=== PATIENT | male | born 1940 | race Caucasian/White ===

== ENCOUNTER 2017-11-28 16:07 | Emergency (ER) | payer BC, OTHER ==
[2017-11-28 16:22] VITALS: BP 156/82
--- NOTE | 2017-11-28 16:43 | UC ---
UC General HPI - HPI Summary HPI Summary: patient c/o chronic ear wax build up and is not being able to hear from the right ear. Denies pain, fever, tinnitus. States last time he instilled vinegar and peroxide was 3 days ago. - History of Current Complaint Chief Complaint: UCEar Stated Complaint: EAR COMPLAINT Time Seen by Provider: 11/28/17 16:28 Hx Obtained From: Patient Onset/Duration: Gradual Onset, Lasting Days Onset Severity: Mild Current Severity: Mild Pain Intensity: 0 - Allergy/Home Medications Allergies/Adverse Reactions: Allergies Allergy/AdvReac Type Severity Reaction Status Date / Time No Known Allergies Allergy Verified 11/28/17 16:15 Home Medications: Home Medications Aspirin TAB* [Aspirin 325 MG TAB*] 325 mg PO DAILY PRN 11/28/17 [History Confirmed 11/28/17] PMH/Surg Hx/FS Hx/Imm Hx Previously Healthy: Yes GI/ History: Other - inflammatory bowel disease Other GI/ History: inflammatory bowel disease - Surgical History Surgical History: Yes Surgery Procedure, Year, and Place: 1999 PROST[place], [facility] [place] Fissure and still leaking (kept open), [facility]. 02/2015 EXPLORATORY LAPAROTOMY, SIGMOID COLON RESECTION WITH [place]OSTOMY, [facility] [place] - Social History Alcohol Use: None Substance Use Type: None Smoking Status (MU): Never Smoked Tobacco Type: Cigarettes Amount Used/How Often: 1 PPD Length of Time of Smoking/Using Tobacco: OFF AND ON 8-10 YEARS Have You Smoked in the Last Year: No When Did the Patient Quit Smoking/Using Tobacco: 1972 - Immunization History Most Recent Influenza Vaccination: 2014 Most Recent Tetanus Shot: unknown Most Recent Pneumonia Vaccination: 2015 Review of Systems Constitutional: Negative ENT: Other - hearing loss right Respiratory: Negative All Other Systems Reviewed And Are Negative: Yes Physical Exam Triage Information Reviewed: Yes Appearance: Well-Appearing, Well-Nourished Vital Signs: Initial Vital Signs Temp 97.9 F 11/28/17 16:13 Pulse 58 11/28/17 16:13 Resp 18 11/28/17 16:13 BP 156/82 11/28/17 16:13 Pulse Ox 100 11/28/17 16:13 Vital Signs Reviewed: Yes Eye Exam: Normal ENT: Positive: Pharynx normal, Uvula midline, Other - cerumen impaction of right ear, presence of cerumen on left ear Dental Exam: Normal Neck exam: Normal Respiratory Exam: Normal Cardiovascular Exam: Normal Bowel Sounds: Positive: Present Course/Dx - Course Course Of Treatment: continue debrox or similar at home, irrigation when needed - Differential Dx - Multi-Symptom Provider Diagnoses: cerumen impaction Discharge - Discharge Plan Condition: Stable Disposition: HOME Patient Education Materials: Cerumen Impaction (ED) Referrals: Joelle Reina MD [Primary Care Provider] -
== END 2017-11-28 16:55 | disposition home or self-care (01) ==
LOC: UCEAST 16:07
DX: H61.21 Impacted cerumen, right ear (principal); Z87.891 Personal history of nicotine dependence; Z79.82 Long term (current) use of aspirin; K58.9 Irritable bowel syndrome, unspecified
CPT/HCPCS: 99213; G0463

== ENCOUNTER 2017-12-21 20:15 | Observation (INO) | payer OTHER ==
[2017-12-21] MEDS ORDERED: Morphine INJ* 4 MG/ML 1 ML SYRINGE (NEW SYRINGE VERSION) IV ONE (21:58)
[2017-12-21] MEDS ORDERED: Ondansetron INJ* 2 MG/ML VIAL IV ONE (21:58)
[2017-12-21] MEDS ORDERED: NS 0.9% 1000 ML* 1,000 ML IV ONE ×2 (21:58→22:48)
[2017-12-21 22:04] LABS: ABS Basophils 0 10^3/ul (0-0.2); ABS Eosinophils 0 10^3/ul (0-0.6); ABS Lymphocytes 0.5 10^3/ul (1.0-4.8); ABS Monocytes 0.5 10^3/ul (0-0.8); ABS Neutrophils 11.5 10^3/ul (1.5-7.7); ABS Nucleated RBC 0 10^3/ul; Eosinophil % 0 % (0-6); Hematocrit 47 % (42-52); Mean Corpuscular HGB Conc 34 g/dl (31-36); Mean Corpuscular Hemoglobin 31 pg (27-31); Mean Corpuscular Volume 91 fL (80-94); Mean Platelet Volume 8.5 um3 (7.4-10.4); Nucleated Red Blood Cells % 0; Platelet Count 189 10^3/ul (150-450); Red Blood Count 5.23 10^6/ul (4.0-5.4); Red Cell Distribution Width 14 % (10.5-15); White Blood Count 12.6 10^3/ul (3.5-10.8)
[2017-12-21 22:08] LABS: Urine Appearance Clear; Urine Blood 1+ (Negative); Urine Color Yellow; Urine Ketones 1+ (Negative); Urine Protein 2+(100 mg/dL) (Negative); Urine Specific Gravity 1.021 (1.010-1.030); Urine Urobilinogen Negative (Negative)
--- NOTE | 2017-12-21 22:21 | ED ---
GI/ HPI - HPI Summary HPI Summary: 77-year-old male presents with left lower quadrant pain and left flank pain for the past day. He admits to nausea and vomiting. He admits to diarrhea. He states this feels like when he is previously had diverticulitis that required a colon resection in 2013 with colonostomy and reversal in 2014. He also has history for prostatitis. He denies any pain with urination. He denies any hematuria. Denies any chest pain or shortness of breath. He denies any fevers. He admits to decreased appetite. He denies eating anything different. He did have a kidney stone in 1998. - History of Current Complaint Chief Complaint: EDAbdPain Time Seen by Provider: 12/21/17 21:42 Stated Complaint: FLANK PAIN Pain Intensity: 7 - Additional Pertinent History Primary Care Physician: ALMA DELIA - Allergy/Home Medications Allergies/Adverse Reactions: Allergies Allergy/AdvReac Type Severity Reaction Status Date / Time No Known Allergies Allergy Verified 11/28/17 16:15 PMH/Surg Hx/FS Hx/Imm Hx Endocrine/Hematology History: Reports: Hx Anemia - With removal of prostate Denies: Hx Diabetes Cardiovascular History: Reports: Hx Hypertension - NO MED, Denies: Hx Congestive Heart Failure GI History: Reports: Hx Crohn's Disease - HX OF Possible crohns vs ulcerative colitis, Hx Diverticulosis, Hx Irritable Bowel, Other GI Disorders - diverticulitis, bowel obstruction in May 12, COLOSTOMY 2014 History: Reports: Other Problems/Disorders - Prostatectomy Sensory History: Reports: Hx Cataracts, Hx Contacts or Glasses - GLASSES Denies: Hx Hearing Aid Opthamlomology History: Reports: Hx Cataracts, Hx Contacts or Glasses - GLASSES - Cancer History Cancer Type, 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 Fissure and still leaking (kept open), [facility]. 02/2015 EXPLORATORY LAPAROTOMY, SIGMOID COLON RESECTION WITH COLOSTOMY, [facility] [place] Hx Anesthesia Reactions: No Infectious Disease History: No Infectious Disease History: Denies: History Other Infectious Disease, Traveled Outside the [place] in Last 30 Days - Family History Known Family History: Positive: Hypertension - Social History Alcohol Use: None Substance Use Type: Reports: None Smoking Status (MU): Never Smoked Tobacco Type: Cigarettes Amount Used/How Often: 1 PPD Length of Time of Smoking/Using Tobacco: OFF AND ON 8-10 YEARS Have You Smoked in the Last Year: No Review of Systems Negative: Fever Negative: Chest Pain Negative: Shortness Of Breath Positive: Abdominal Pain, Vomiting, Diarrhea, Nausea Negative: dysuria All Other Systems Reviewed And Are Negative: Yes Physical Exam Triage Information Reviewed: Yes Vital Signs On Initial Exam: Initial Vitals Temp Pulse Resp BP Pulse Ox 98.4 F 93 20 171/118 96 12/21/17 20:21 12/21/17 20:21 12/21/17 20:21 12/21/17 20:21 12/21/17 20:21 Vital Signs Reviewed: Yes Appearance: Positive: Well-Appearing Skin: Positive: Warm, Dry Head/Face: Positive: Normal Head/Face Inspection Eyes: Positive: Normal, Conjunctiva Clear Respiratory/Lung Sounds: Positive: Clear to Auscultation, Breath Sounds Present Cardiovascular: Positive: Normal, RRR Abdomen Description: Positive: Soft, CVA Tenderness (L), Other: - tenderness LLQ Bowel Sounds: Positive: Present Musculoskeletal: Positive: Normal Neurological: Positive: Normal Psychiatric: Positive: Normal Diagnostics - Vital Signs Vital Signs Temp Pulse Resp BP Pulse Ox 12/21/17 22:12 17 12/21/17 20:21 98.4 F 93 20 171/118 96 - Laboratory Lab Results: Lab Results 12/21/17 12/21/17 Range/Units 21:42 21:42 WBC 12.6 H (3.5-10.8) 10^3/ul RBC 5.23 (4.0-5.4) 10^6/ul Hgb 16.0 (14.0-18.0) g/dl Hct 47 (42-52) % MCV 91 (80-94) fL MCH 31 (27-31) pg MCHC 34 (31-36) g/dl RDW 14 (10.5-15) % Plt Count 189 (150-450) 10^3/ul MPV 8.5 (7.4-10.4) um3 Neut % (Auto) 91.6 H (38-83) % Lymph % (Auto) 4.0 L (25-47) % [place] % (Auto) 4.3 (0-7) % Eos % (Auto) 0 (0-6) % Baso % (Auto) 0.1 (0-2) % Absolute Neuts (auto) 11.5 H (1.5-7.7) 10^3/ul Absolute Lymphs (auto) 0.5 L (1.0-4.8) 10^3/ul Absolute Monos (auto) 0.5 (0-0.8) 10^3/ul Absolute Eos (auto) 0 (0-0.6) 10^3/ul Absolute Basos (auto) 0 (0-0.2) 10^3/ul Absolute Nucleated RBC 0 10^3/ul Nucleated RBC % 0 Urine Color Yellow Urine Appearance Clear Urine pH 6.0 (5-9) Ur Specific [place] 1.021 (1.010-1.030) Urine Protein 2+(100 mg/dl) A (Negative) Urine Ketones 1+ A (Negative) Urine Blood 1+ A (Negative) Urine Nitrate Negative (Negative) Urine Bilirubin Negative (Negative) Urine Urobilinogen Negative (Negative) Ur Leukocyte Esterase Negative (Negative) Urine WBC (Auto) Trace(0-5/hpf) (Absent) Urine RBC (Auto) 1+(3-5/hpf) A (Absent) Ur Squamous Epith Cells Present A (Absent) Urine Bacteria Absent (Absent) Urine Glucose 2+(150 mg/dl) A (Negative) Result Diagrams: 12/21/17 21:42 12/21/17 21:42 Lab Statement: Any lab studies that have been ordered have been reviewed, and results considered in the medical decision making process. - CT abd CT Interpretation: Positive (See Comments) - Moderate left hydronephrosis. From inflammation secondary to a 10 minute 9 mm proximal to mid left ureteral stone. CT Interpretation Completed By: Radiologist ABIGAIL Course/Dx - Course Course Of Treatment: 77-year-old male presents with left lower quadrant pain and left flank pain for the past day. He admits to nausea and vomiting. He admits to diarrhea. He states this feels like when he is previously had diverticulitis that required a colon resection in 2013 with colonostomy and reversal in 2014. He also has history for prostatitis. He denies any pain with urination. He denies any hematuria. Denies any chest pain or shortness of breath. He denies any fevers. He admits to decreased appetite. He denies eating anything different. On exam has tenderness of left flank and left lower quadrant. Labs white blood cell count 13 with left shift. u/a no infection. cr elevated. Ct shows 10mm stone. spoke with dr soto who will see tomorrow. dr norton agrees to admit. - Diagnoses Differential Diagnoses - Male: Bowel Obstruction, Diverticulosis, Ureteral Calculi, Urinary Tract Infection Provider Diagnoses: Left ureteral stone Discharge - Sign-Out/Discharge Documenting (check all that apply): Discharge - Discharge Plan Condition: Good Disposition: ADMITTED TO [facility] Referrals: Joelle Reina MD [Primary Care Provider] - - Billing Disposition and Condition Condition: GOOD Disposition: HOSP-[facility] [place]
[2017-12-22] MEDS ORDERED: LORazepam INJ* 2 MG/ML 1 ML VIAL IV PRN (01:41)
[2017-12-22] MEDS ORDERED: Ondansetron INJ* 2 MG/ML VIAL IV PRN (01:41)
[2017-12-22] MEDS ORDERED: Acetaminophen SUPP* 650 MG SUPP PR PRN (01:41)
[2017-12-22] MEDS ORDERED: NS 0.9% 1000 ML* 1,000 ML IV SCH (01:45)
[2017-12-22 02:21] LABS: EGFR Non-African American 30.5 (>60)
[2017-12-22 02:30] LABS: INR 1.12 (0.77-1.02)
[2017-12-22] MEDS: Morphine INJ* 2 MG/ML 1 ML CARPUJECT IV PRN ×2 (03:11→07:56)
--- NOTE | 2017-12-22 04:12 | HP ---
H&P (Free Text) History and Physical: PCP: Simon Reina MD Date/Time: 12/22/2017 0130 CC: L flank pain HPI: Mr Stevenson is a 77YO male HX ulcerative colitis, diverticulitis, & urolithiasis who presents with ~24 hours of L flank pain radiating to the LLQ associated with N/V and diarrhea. He denies F/C, B/U/F of urine, black or bloody emesis, chest pain, SOB, or other issues. He states this reminds him of his previous issues with diverticulitis. CT abd/pel revealed a 10mm L ureteral stone causing obstruction. PMedHx ulcerative colitis diverticulitis urolithiasis Ambulatory Orders Nursing to reconcile. Aspirin TAB* [Aspirin 325 MG TAB*] 325 mg PO DAILY PRN 11/28/17 Allergies No Known Allergies Allergy (Verified 11/28/17 16:15) PSurgHx Jamison s/p reversal for diverticulitis radical prostatectomy SocHx: quit smoking >40years ago, rare alcohol, no recreational drugs; lives with his ; works as a class a regional truck driver; full code status FamHx: reviewed & non-contributory to presentation ROS: as above, otherwise reviewed and all were negative vitals: Vital Signs Temp 36.8 C 12/22/17 03:00 Pulse 88 12/22/17 03:00 Resp 18 12/22/17 03:43 BP 146/93 12/22/17 03:00 Pulse Ox 93 12/22/17 03:00 Intake & Output 12/21/17 12/21/17 12/22/17 11:59 23:59 11:59 Intake Total 1000 1000 Output Total 325 Balance 1000 675 Weight 81.647 kg 81.647 kg Intake: IV Fluids 1000 1000 Output: Urine 325 Constitutional: NAD, normally developed, overweight elderly white male HEENM: atraumatic; sclera/conjunctiva: anicteric/clear; hearing: clinically intact; oropharynx: clear, moist Neck: soft tissue: non-tender; thyroid: normal Pulmonary: clear to auscultation bilaterally, good aeration, no accessory muscle use CV: RR/RR, normal S1S2, no carotid bruit, no jugular venous distention, 2+ B DP/ PT, no edema Abdominal: soft, non-distended, non-tender, no rebound/guarding/rigidity, normoactive bowel sounds, no hepatosplenomegaly or masses, no costovertebral angle tenderness Musculoskeletal: general: grossly intact, no tenderness w/ palpation Integumental: normal appearance and texture of exposed skin Psychiatric orientation: AA&O to PPS affect: calm mood: cooperative eye contact: good content: reliable responses: timely insight: good Testing: Lab Results 12/21/17 12/21/17 12/21/17 Range/Units 21:42 21:42 21:42 WBC 12.6 H (3.5-10.8) 10^3/ul RBC 5.23 (4.0-5.4) 10^6/ul Hgb 16.0 (14.0-18.0) g/dl Hct 47 (42-52) % MCV 91 (80-94) fL MCH 31 (27-31) pg MCHC 34 (31-36) g/dl RDW 14 (10.5-15) % Plt Count 189 (150-450) 10^3/ul MPV 8.5 (7.4-10.4) um3 Neut % (Auto) 91.6 H (38-83) % Lymph % (Auto) 4.0 L (25-47) % [place] % (Auto) 4.3 (0-7) % Eos % (Auto) 0 (0-6) % Baso % (Auto) 0.1 (0-2) % Absolute Neuts (auto) 11.5 H (1.5-7.7) 10^3/ul Absolute Lymphs (auto) 0.5 L (1.0-4.8) 10^3/ul Absolute Monos (auto) 0.5 (0-0.8) 10^3/ul Absolute Eos (auto) 0 (0-0.6) 10^3/ul Absolute Basos (auto) 0 (0-0.2) 10^3/ul Absolute Nucleated RBC 0 10^3/ul Nucleated RBC % 0 INR (Anticoag Therapy) (0.77-1.02) APTT (26.0-36.3) seconds Sodium 136 (133-145) mmol/L Potassium 3.8 (3.5-5.0) mmol/L Chloride 100 L (101-111) mmol/L Carbon Dioxide 25 (22-32) mmol/L Anion Gap 11 (2-11) mmol/L BUN 29 H (6-24) mg/dL Creatinine 2.20 H (0.67-1.17) mg/dL Est GFR ( Amer) 37.3 (>60) Est GFR (Non-Af Amer) 29.0 (>60) BUN/Creatinine Ratio 13.2 (8-20) Glucose 174 H (70-100) mg/dL Calcium 9.6 (8.6-10.3) mg/dL Total Bilirubin 1.20 H (0.2-1.0) mg/dL AST 20 (13-39) U/L ALT 22 (7-52) U/L Alkaline Phosphatase 51 (34-104) U/L C-React Prot High Sens 57.28 mg/L Total Protein 8.0 (6.4-8.9) g/dL Albumin 4.3 (3.2-5.2) g/dL Globulin 3.7 (2-4) g/dL Albumin/Globulin Ratio 1.2 (1-3) Lipase 31 (11.0-82.0) U/L Urine Color Yellow Urine Appearance Clear Urine pH 6.0 (5-9) Ur Specific [place] 1.021 (1.010-1.030) Urine Protein 2+(100 mg/dl) A (Negative) Urine Ketones 1+ A (Negative) Urine Blood 1+ A (Negative) Urine Nitrate Negative (Negative) Urine Bilirubin Negative (Negative) Urine Urobilinogen Negative (Negative) Ur Leukocyte Esterase Negative (Negative) Urine WBC (Auto) Trace(0-5/hpf) (Absent) Urine RBC (Auto) 1+(3-5/hpf) A (Absent) Ur Squamous Epith Cells Present A (Absent) Urine Bacteria Absent (Absent) Urine Glucose 2+(150 mg/dl) A (Negative) 12/22/17 12/22/17 Range/Units 01:50 01:50 WBC (3.5-10.8) 10^3/ul RBC (4.0-5.4) 10^6/ul Hgb (14.0-18.0) g/dl Hct (42-52) % MCV (80-94) fL MCH (27-31) pg MCHC (31-36) g/dl RDW (10.5-15) % Plt Count (150-450) 10^3/ul MPV (7.4-10.4) um3 Neut % (Auto) (38-83) % Lymph % (Auto) (25-47) % [place] % (Auto) (0-7) % Eos % (Auto) (0-6) % Baso % (Auto) (0-2) % Absolute Neuts (auto) (1.5-7.7) 10^3/ul Absolute Lymphs (auto) (1.0-4.8) 10^3/ul Absolute Monos (auto) (0-0.8) 10^3/ul Absolute Eos (auto) (0-0.6) 10^3/ul Absolute Basos (auto) (0-0.2) 10^3/ul Absolute Nucleated RBC 10^3/ul Nucleated RBC % INR (Anticoag Therapy) 1.12 H (0.77-1.02) APTT 26.2 (26.0-36.3) seconds Sodium (133-145) mmol/L Potassium (3.5-5.0) mmol/L Chloride (101-111) mmol/L Carbon Dioxide (22-32) mmol/L Anion Gap (2-11) mmol/L BUN 27 H (6-24) mg/dL Creatinine 2.11 H (0.67-1.17) mg/dL Est GFR ( Amer) 39.2 (>60) Est GFR (Non-Af Amer) 30.5 (>60) BUN/Creatinine Ratio (8-20) Glucose (70-100) mg/dL Calcium (8.6-10.3) mg/dL Total Bilirubin (0.2-1.0) mg/dL AST (13-39) U/L ALT (7-52) U/L Alkaline Phosphatase (34-104) U/L C-React Prot High Sens mg/L Total Protein (6.4-8.9) g/dL Albumin (3.2-5.2) g/dL Globulin (2-4) g/dL Albumin/Globulin Ratio (1-3) Lipase (11.0-82.0) U/L Urine Color Urine Appearance Urine pH (5-9) Ur Specific [place] (1.010-1.030) Urine Protein (Negative) Urine Ketones (Negative) Urine Blood (Negative) Urine Nitrate (Negative) Urine Bilirubin (Negative) Urine Urobilinogen (Negative) Ur Leukocyte Esterase (Negative) Urine WBC (Auto) (Absent) Urine RBC (Auto) (Absent) Ur Squamous Epith Cells (Absent) Urine Bacteria (Absent) Urine Glucose (Negative) CT abd/pel W, personally reviewed: IMPRESSION: Moderate left hydronephrosis and mild perinephric inflammation secondary to a 10x9mm left proximal to mid- ureteral stone. Additional tiny left renal stone. Gallstone. Impression: 77M presenting with 10x9mm L mid-ureteral stone & obstruction DIAGNOSIS & PLAN Primary obstructing L mid-ureteral stone : IVFs : pain control : Simon De La Rosa MD consulted by ED, will evaluate in AM : NPO : supportive care Secondary ulcerative colitis : review meds once reconciled Admission Rational: observation for obstructing L ureteral stone DVTp: SCDs Code Status: full HCP:
[2017-12-22 06:15] LABS: Hematocrit 43 % (42-52); Hemoglobin 14.5 g/dl (14.0-18.0); Mean Corpuscular HGB Conc 34 g/dl (31-36); Mean Corpuscular Hemoglobin 31 pg (27-31); Mean Corpuscular Volume 91 fL (80-94); Mean Platelet Volume 7.9 um3 (7.4-10.4); Platelet Count 181 10^3/ul (150-450); Red Blood Count 4.66 10^6/ul (4.0-5.4); Red Cell Distribution Width 14 % (10.5-15); White Blood Count 12.9 10^3/ul (3.5-10.8)
[2017-12-22] MEDS: Pantoprazole IV* 40 MG IV SCH (07:56)
--- NOTE | 2017-12-22 08:14 | RAD ---
INDICATION: LEFT lower quadrant abdominal pain. Vomiting. Diarrhea. History of IBS/Crohn's. Post sigmoid colon resection with colostomy. Post prostatectomy. COMPARISON: March 05, 2015 CT. TECHNIQUE: Multidetector CT images were obtained from the lung bases to the ischial tuberosities. Oral contrast administered. Assessment of the visceral limited without IV contrast. REPORT: Unremarkable visualized inferior thorax. Unremarkable unenhanced liver. Dependent stone at the normally distended gallbladder without additional CT abnormality of the gallbladder. Moderately atrophic pancreas without visualized focal lesion or inflammatory change. Small splenule adjacent to the unremarkable dominant spleen. Small medially directed diverticulum at the second segment of the duodenum without additional abnormality of the upper GI. Negative for CT abnormality of the small bowel or medially extending appendix. Rectosigmoid bowel anastomosis without suspicious finding. Mild diverticulosis of the remaining colon. Negative for compelling perienteric inflammatory change to indicate acute diverticulitis. Negative for ascites or free air. Small midline ventral hernia containing part of the anterior wall of the transverse colon without evidence for obstruction or inflammatory change. Normal adrenal glands. Moderately severe LEFT hydroureteronephrosis is traced to a 8 mm stone at the proximal ureter. Associated perinephric and periureteral inflammatory change. Additionally there is a 3.5 mm stone within the urinary bladder immediately medial to the LEFT ureterovesicular junction. No additional abnormality at the urinary bladder. Post prostatectomy. Negative for lymphadenopathy. Atherosclerotic calcification at normal diameter abdominal aorta and iliac arteries. Physiologic distention of the IVC. Negative for suspicious osseous lesions. IMPRESSION: 1. Moderately severe LEFT hydroureteronephrosis is traced to a 8 mm stone at the proximal ureter. Additionally there is a 3.5 mm stone within the urinary bladder immediately medial to the LEFT ureterovesicular junction. 2. Mild colonic diverticulosis without findings of acute diverticulitis. 3. Cholelithiasis. 4. Negative for lymphadenopathy.
--- NOTE | 2017-12-22 09:19 | RAD ---
HISTORY: Left ureteral calculus COMPARISONS: None VIEWS: Frontal views of the abdomen. FINDINGS: BOWEL: There is a nonobstructive bowel gas pattern. Oral contrast noted within the colon. CALCULI: There is a 0.8 cm rounded left lung the left hemiabdomen opposite of L4-L5, corresponding to the left UPJ calculus noted on the previous examination. This is similar in position accounting for differences in technique. There is a calculus of the left hemipelvis that appears to correspond to the left UVJ stone noted on the previous examination. BONES AND SOFT TISSUES: Mild degenerative changes are noted. OTHER FINDINGS: The lung bases are clear. There is no subphrenic gas. Surgical clips are noted in the pelvis. IMPRESSION: STABLE LEFT NEPHROLITHIASIS.
[2017-12-22] MEDS ORDERED: CEFTRIAXONE 2000 MG IVPB ONE ×2 (09:30)
[2017-12-22] MEDS ORDERED: cefTRIAXone(*) 2 GM ADDV.VIAL IVPB ONE (10:00)
[2017-12-22] MEDS ORDERED: Iohexol 180 (CONTRAST) 10 ML SDV IV ONE (12:09)
[2017-12-22] MEDS ORDERED: fentaNYL* 50 MCG/ML 2 ML VIAL (100 MCG VIAL) ONE (12:18)
[2017-12-22] MEDS ORDERED: Dexamethasone IV* 4 MG/ML 1 ML (4 MG) ONE (12:57)
[2017-12-22] MEDS ORDERED: Propofol* 10 MG/ML 20 ML BTL IV PUSH ONE (12:57)
[2017-12-22] MEDS ORDERED: Ondansetron INJ* 2 MG/ML VIAL ONE (12:57)
[2017-12-22] MEDS ORDERED: Naloxone* 0.4 MG/ML 1 ML VIAL IV PRN (13:04)
[2017-12-22] MEDS ORDERED: diPHENhydraMINE IV* 50 MG/ML 1 ml VIAL (BENADRYL) IV PRN (13:04)
[2017-12-22] MEDS ORDERED: fentaNYL* 50 MCG/ML 2 ML VIAL (100 MCG VIAL) IV PRN (13:04)
--- NOTE | 2017-12-22 13:53 | RAD ---
INDICATION: Cystoscopy. LEFT retrograde stent placement. Stone extraction. COMPARISON: December 22, 2017 CT. TECHNIQUE: 9 seconds fluoroscopy. FINDINGS: Spot images document a LEFT retrograde pyelogram with mild calyceal blunting. LEFT ureteral stent placed. LEFT pelvic surgical clips. IMPRESSION: Procedural fluoroscopy. CPT II Codes: 6045F
--- NOTE | 2017-12-22 16:24 | PN ---
Subjective Date of Service: 12/22/17 Interval History: Patient seen and examined. Feeling better, pain controlled. Post stenting today without complication. Denies fever, headache or chills, no dysuria. at bedside. Objective Active Medications: Acetaminophen (Tylenol Supp*) 650 mg KS Q6H PRN PRN Reason: FEVER/PAIN Diphenhydramine HCl (Benadryl Iv*) 12.5 mg IV ONCE PRN PRN Reason: ITCHING Stop: 12/22/17 17:00 Fentanyl Citrate (Fentanyl*) 25 mcg IV Q2M PRN PRN Reason: PAIN - MODERATE Stop: 12/22/17 17:00 Heparin Sodium (Porcine) (Heparin Vial(*)) 5,000 units SUBCUT Q8HR SUDEEP Lactated Ringer's (Lactated Ringers 1000 Ml Bag*) 1,000 mls @ 150 mls/hr IV PER RATE SUDEEP Lorazepam (Ativan Inj*) 0.5 mg IV BEDTIME PRN PRN Reason: SLEEP Morphine Sulfate (Morphine Inj (Syringe)*) 2 mg IV Q4H PRN PRN Reason: PAIN - MILD Last Admin: 12/22/17 07:56 Dose: 2 mg Naloxone HCl (Narcan*) 0.08 mg IV Q2M PRN PRN Reason: severe induced resp depression Stop: 12/22/17 17:00 Ondansetron HCl (Zofran Inj*) 4 mg IV Q6H PRN PRN Reason: NAUSEA Pantoprazole Sodium (Protonix Iv*) 40 mg IV DAILY [facility] Last Admin: 12/22/17 07:56 Dose: 40 mg Vital Signs - 8 hr 12/22/17 12/22/17 12/22/17 09:13 09:15 09:22 Temperature 98.7 F 98.7 F Pulse Rate 80 80 Respiratory 16 16 16 Rate Blood Pressure 149/90 149/90 (mmHg) O2 Sat by Pulse 95 95 Oximetry 12/22/17 12/22/17 12/22/17 13:36 13:40 13:45 Temperature 97.5 F 97.5 F Pulse Rate 86 80 76 Respiratory 16 14 14 Rate Blood Pressure 147/84 137/74 133/73 (mmHg) O2 Sat by Pulse 97 96 96 Oximetry 12/22/17 12/22/17 12/22/17 14:16 14:28 14:45 Temperature 97.5 F 97.2 F Pulse Rate 90 76 76 Respiratory 16 18 18 Rate Blood Pressure 134/84 132/67 132/67 (mmHg) O2 Sat by Pulse 96 99 99 Oximetry 12/22/17 12/22/17 15:24 15:32 Temperature 97.6 F Pulse Rate 78 Respiratory 16 Rate Blood Pressure 126/81 (mmHg) O2 Sat by Pulse 96 96 Oximetry Oxygen Devices in Use Now: None Appearance: Alert, well appearing, NAD Eyes: No Scleral Icterus, PERRLA Ears/Nose/Mouth/Throat: NL Teeth, Lips, Gums, Mucous Membranes Moist Neck: NL Appearance and Movements; NL JVP, Trachea Midline Respiratory: Symmetrical Chest Expansion and Respiratory Effort, Clear to Auscultation Cardiovascular: NL Sounds; No Murmurs; No JVD, RRR, No Edema Abdominal: NL Sounds; No Tenderness; No Distention Extremities: No Edema, No Clubbing, Cyanosis Neurological: Alert and Oriented x 3, NL Sensation, NL Gait, NL Muscle Strength and Tone Nutrition: Taking PO's Result Diagrams: 12/22/17 05:39 12/22/17 05:39 Additional Lab and Data: Lab Results 12/21/17 12/21/17 Range/Units 21:42 21:42 WBC 12.6 H (3.5-10.8) 10^3/ul RBC 5.23 (4.0-5.4) 10^6/ul Hgb 16.0 (14.0-18.0) g/dl Hct 47 (42-52) % MCV 91 (80-94) fL MCH 31 (27-31) pg MCHC 34 (31-36) g/dl RDW 14 (10.5-15) % Plt Count 189 (150-450) 10^3/ul MPV 8.5 (7.4-10.4) um3 Neut % (Auto) 91.6 H (38-83) % Lymph % (Auto) 4.0 L (25-47) % [place] % (Auto) 4.3 (0-7) % Eos % (Auto) 0 (0-6) % Baso % (Auto) 0.1 (0-2) % Absolute Neuts (auto) 11.5 H (1.5-7.7) 10^3/ul Absolute Lymphs (auto) 0.5 L (1.0-4.8) 10^3/ul Absolute Monos (auto) 0.5 (0-0.8) 10^3/ul Absolute Eos (auto) 0 (0-0.6) 10^3/ul Absolute Basos (auto) 0 (0-0.2) 10^3/ul Absolute Nucleated RBC 0 10^3/ul Nucleated RBC % 0 Urine Color Yellow Urine Appearance Clear Urine pH 6.0 (5-9) Ur Specific [place] 1.021 (1.010-1.030) Urine Protein 2+(100 mg/dl) A (Negative) Urine Ketones 1+ A (Negative) Urine Blood 1+ A (Negative) Urine Nitrate Negative (Negative) Urine Bilirubin Negative (Negative) Urine Urobilinogen Negative (Negative) Ur Leukocyte Esterase Negative (Negative) Urine WBC (Auto) Trace(0-5/hpf) (Absent) Urine RBC (Auto) 1+(3-5/hpf) A (Absent) Ur Squamous Epith Cells Present A (Absent) Urine Bacteria Absent (Absent) Urine Glucose 2+(150 mg/dl) A (Negative) Diagnostic Imaging: Patient Name: MO LACKEY Medical Record#: [id number] Ordering Physician: Deb TORRES Acct.#: [id number] : 1940 Age: 77 Sex: M Location: SURGICAL STAY UNIT Exam Date: 12/21/172158 ADM Status: ADM Sowmya Order Information: CT ABD/PEL W/O Accession Number: [id number] CPT: 29507 INDICATION: LEFT lower quadrant abdominal pain. Vomiting. Diarrhea. History of IBS/Crohn's. Post sigmoid colon resection with colostomy. Post prostatectomy. COMPARISON: March 05, 2015 CT. TECHNIQUE: Multidetector CT images were obtained from the lung bases to the ischial tuberosities. Oral contrast administered. Assessment of the visceral limited without IV contrast. REPORT: Unremarkable visualized inferior thorax. Unremarkable unenhanced liver. Dependent stone at the normally distended gallbladder without additional CT abnormality of the gallbladder. Moderately atrophic pancreas without visualized focal lesion or inflammatory change. Small splenule adjacent to the unremarkable dominant spleen. Small medially directed diverticulum at the second segment of the duodenum without additional abnormality of the upper GI. Negative for CT abnormality of the small bowel or medially extending appendix. Rectosigmoid bowel anastomosis without suspicious finding. Mild diverticulosis of the remaining colon. Negative for compelling perienteric inflammatory change to indicate acute diverticulitis. Negative for ascites or free air. Small midline ventral hernia containing part of the anterior wall of the transverse colon without evidence for obstruction or inflammatory change. Normal adrenal glands. Moderately severe LEFT hydroureteronephrosis is traced to a 8 mm stone at the proximal ureter. Associated perinephric and periureteral inflammatory change. Additionally there is a 3.5 mm stone within the urinary bladder immediately medial to the LEFT ureterovesicular junction. No additional abnormality at the urinary bladder. Post prostatectomy. Negative for lymphadenopathy. Atherosclerotic calcification at normal diameter abdominal aorta and iliac arteries. Physiologic distention of the IVC. Negative for suspicious osseous lesions. IMPRESSION: 1. Moderately severe LEFT hydroureteronephrosis is traced to a 8 mm stone at the proximal ureter. Additionally there is a 3.5 mm stone within the urinary bladder immediately medial to the LEFT ureterovesicular junction. 2. Mild colonic diverticulosis without findings of acute diverticulitis. 3. Cholelithiasis. 4. Negative for lymphadenopathy. <Electronically signed by Garo Lance MD in [place]> 12/22/17 0811 Dictated By: Garo Lance MD Dictated Date/Time: 12/22/17 0811 Transcribed Date/Time: 12/22/17 0756 Copy to: 1 of 2 Assess/Plan/Problems-Billing Assessment: This is a 77 year old male with ureteral obstruction, admitted for intractable pain and stenting. - Patient Problems (1) Left ureteral stone Status: Acute Code(s): N20.1 - CALCULUS OF URETER SNOMED Code(s): 88770860 Comment: - Post ureteral stent - May have regular diet - Pain control as needed - appreciate recs from urology regarding f/u, dispo planning and antibiotics (2) Abdominal pain Onset Date: 05/25/14 Code(s): R10.9 - UNSPECIFIED ABDOMINAL PAIN SNOMED Code (s): 71132620 Comment: - controlled (3) IBD (inflammatory bowel disease) Code(s): K63.89 - OTHER SPECIFIED DISEASES OF INTESTINE SNOMED Code(s): 99197172 Comment: - At baseline without acute flare Status and Disposition: DC home when clear by urology
[2017-12-22] MEDS: Heparin VIAL(*) 5000 UNITS/ML VIAL (FIVE THOUSAND) SUBCUT SCH (22:41)
--- NOTE | 2017-12-23 02:55 | OP ---
CC: Dr. Joelle Reina * DATE OF OPERATION: 12/22/17 - ROOM #[id number] DATE OF : 36 SURGEON: Kyle Christine MD PRE-OP DIAGNOSES: 1. Left hydronephrosis. 2. Left ureteral calculi. POST-OP DIAGNOSES: 1. Left hydronephrosis. 2. Left ureteral calculi. 3. 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 OPERATIVE PROCEDURE: Cystoscopy, left retrograde pyelogram, left ureteroscopy and laser lithotripsy and removal of ureteral calculus fragments and left stent insertion. STENT USED: A 7-[place] Zealander stent left ureter. OPERATIVE FINDINGS: 1. A 4 to 5 mm calculus impacted at left ureterovesical junction. 2. Low-grade polypoid lesion noted on lateral aspect of left distal ureter ( appearance consistent with grade 1 superficial TCC). 3. Additional calculi at left proximal ureter noted on CT scan, not well visualized on fluoroscopy. INDICATIONS: Carlos Stevenson is a 77-year-old gentleman, who was evaluated for severe left hydronephrosis secondary to a large obstructing calculus in the left proximal ureter. In addition on the CT, it appeared there is a second calcification close to the ureterovesical junction. DESCRIPTION OF PROCEDURE: After induction of general anesthesia, the patient was placed in dorsal lithotomy position. Sequential compression devices were in place and functioning. Initial cystoscopy revealed a normal-appearing urethra. The patient is status post radical prostatectomy. The bladder was examined and appeared unremarkable with no suspicious lesions noted. A guidewire was introduced into the left ureter. Resistance was encountered just inside the ureterovesical junction and the wire could not be advanced beyond the point of obstruction. I next introduced a 6-[place] Zealander ureteroscope and could visualize the calculus about a centimeter inside the ureterovesical junction and was then able to visually place the wire adjacent to the calculus. Once this was done, the ureteroscope was replaced back along side the wire and using a 550 micron holmium laser, this 4 to 5 mm calculus which was impacted in that area was disengaged and then fragmented. All of the fragments were removed. The ureteroscope was advanced more proximally. Retrograde pyelogram was done, which showed fullness of the collecting system and extravasation. A few centimeters above the impacted stone still at the junction of the distal to mid left ureter, a small polypoid lesion was noted in the lateral aspect of the ureter. This had a visual appearance of a grade 1 superficial neoplasm and initially I attempted to remove it with the basket, but because of the extravasation, I did not want to persist with the ureteroscope and instead obtained washings, which were sent for cytology. A 7-[place] Zealander stent was introduced and positioned under fluoroscopy. The plan is to bring him back at some point for treatment of the larger proximal calculus, and then will also require biopsy and possible excision and fulguration of the lesion in the ureter. The patient tolerated the procedure satisfactorily and was transferred back to recovery area in stable condition. [id number]/[facility] #: [id number] MTDD
[2017-12-23] MEDS: Heparin VIAL(*) 5000 UNITS/ML VIAL (FIVE THOUSAND) SUBCUT SCH (06:58)
[2017-12-23] MEDS: Pantoprazole IV* 40 MG IV SCH (08:15)
--- NOTE | 2017-12-23 08:22 | RAD ---
HISTORY: Left ureteral obstructing stone COMPARISONS: December 22, 2017 VIEWS: Frontal views of the abdomen. FINDINGS: BOWEL: There is a nonobstructive bowel gas pattern. Oral contrast is noted within the colon. CALCULI: Again noted is a left ureteral catheters. There has been interval placement of a left ureteral stent. BONES AND SOFT TISSUES: Mild degenerative changes are noted of the spine. Surgical clips are noted in the pelvis. OTHER FINDINGS: None . IMPRESSION: LEFT NEPHROLITHIASIS WITH A LEFT URETERAL STENT.
[2017-12-23] MEDS ORDERED: cefTRIAXone 2000 MG SYRINGE IVPB ONCE (in NaCl) IVPB ONE ×2 (11:00)
[2017-12-23 12:11] VITALS: BP 128/62
== END 2017-12-23 14:20 | disposition home or self-care (01) ==
LOC: ED 20:15 → SSU 12-22 02:17
PROVIDERS: ADMIT Hospitalist; ATTEND Internal Medicine
PROC: 0T778DZ Dilation of Left Ureter with Intraluminal Device, Via Natural or Artificial Opening Endoscopic (ICD-10-PCS; 2017-12-22)
PROC: 0TC78ZZ Extirpation of Matter from Left Ureter, Via Natural or Artificial Opening Endoscopic (ICD-10-PCS; principal; 2017-12-22 12:30)
DX: N13.2 Hydronephrosis with renal and ureteral calculous obstruction (principal); N28.9 Disorder of kidney and ureter, unspecified; K51.90 Ulcerative colitis, unspecified, without complications; K57.92 Diverticulitis of intestine, part unspecified, without perforation or abscess without bleeding; K63.89 Other specified diseases of intestine; R10.84 Generalized abdominal pain; R11.2 Nausea with vomiting, unspecified; Z87.891 Personal history of nicotine dependence
CPT/HCPCS: 36415; 74018; 74176; 74420; 80048; 80053; 81003; 81015; 82365; 82565; 83690; 84520; 85025; 85027; 85610; 85730; 86141; 87086; 88112; 88300; 99284; C1876; G0378; J0696; J1100; J1644; J2270; J2405; J2704; J3010

== ENCOUNTER 2018-01-05 09:33 | Day surgery (SDC) | payer MEDICARE, OTHER ==
[~2018-01-05 09:33] MED LIST: Buffered Lidocaine 0.9% SYRIN* 5 ML/SYR SYRINGE INTRADERM ONE; DiMENhydriNATE IV* 50 MG/ML VIAL IV PUSH PRN; Famotidine IV* 10 MG/ML 2 ML (20 mg) IV ONE; Morphine INJ* 2 MG/ML 1 ML CARPUJECT IV PRN; Naloxone* 0.4 MG/ML 1 ML VIAL IV PRN; PROCHLORPERAZINE INJ 5 MG/ML 2 ML VIAL IV PRN; cefTRIAXone(*) 2 GM in NS 0.9% 50 ML* 50 ML IVPB ONE; fentaNYL* 50 MCG/ML 2 ML VIAL (100 MCG VIAL) IV PRN; oxyCODONE/Acetamin 5/325 MG* TAB PO PRN
[2018-01-05] MEDS ORDERED: cefTRIAXone(*) 2 GM ADDV.VIAL IVPB ONE (10:20)
[2018-01-05] MEDS ORDERED: Famotidine IV* 10 MG/ML 2 ML (20 mg) ONE (10:20)
[2018-01-05] MEDS ORDERED: Buffered Lidocaine 0.9% SYRIN* 5 ML/SYR SYRINGE ONE (10:20)
[2018-01-05] MEDS ORDERED: Midazolam* 1 MG/ML 5 ML VIAL (5 MG) ONE (10:52)
[2018-01-05] MEDS ORDERED: fentaNYL* 50 MCG/ML 2 ML VIAL (100 MCG VIAL) ONE (10:52)
--- NOTE | 2018-01-05 11:23 | RAD ---
INDICATION: Left-sided shockwave lithotripsy COMPARISON: Most recent KUB is dated December 29, 2001 TECHNIQUE: 2 views the abdomen were obtained. FINDINGS: Again seen is a left ureteral stent in anatomic alignment. Adjacent to the proximal third of the left ureteral stent is a 1 cm calcification that is unchanged from the previous KUB. Surgical material seen in the low midline pelvis including surgical clips overlying the bilateral pelvic sidewalls. IMPRESSION: ANATOMIC ALIGNMENT OF LEFT URETERAL STENT WITH STABLE 1 CM CALCIFICATION ADJACENT TO THE PROXIMAL THIRD.
[2018-01-05] MEDS ORDERED: Ondansetron INJ* 2 MG/ML VIAL ONE (11:56)
[2018-01-05] MEDS ORDERED: Lidocaine 2% PF * 5 ML VIAL ONE (11:56)
[2018-01-05] MEDS ORDERED: Propofol* 10 MG/ML 20 ML BTL IV PUSH ONE (11:56)
[2018-01-05] MEDS ORDERED: Dexamethasone IV* 4 MG/ML 1 ML (4 MG) ONE (11:56)
[2018-01-05] MEDS ORDERED: Furosemide IV* 10 MG/ML 2 ML VIAL (20 MG) ONE (11:56)
[2018-01-05 13:05] VITALS: BP 170/91
--- NOTE | 2018-01-05 15:14 | RAD ---
INDICATION: Left ureteral calculus COMPARISON: January 05, 2018 TECHNIQUE: A single view of the abdomen is submitted. FINDINGS: Bones: There are no acute bony findings. Soft tissues: The soft tissues appear normal. The psoas margins are sharp. Bowel gas pattern: Normal Calcifications: There is a 9 to 10 mm calculus at the level the proximal left ureter, unchanged. Other: There are clips and sutures project over the minor pelvis. There is left ureteral stent appearing unchanged in position IMPRESSION: NO CHANGE IN THE LEFT URETERAL CALCULUS.
--- NOTE | 2018-01-06 03:00 | OP ---
CC: Dr. Joelle Reina * DATE OF OPERATION: 01/05/18 - [facility] DATE OF : 36 SURGEON: Kyle Christine MD. ANESTHESIOLOGIST: Dr. Sal. ANESTHESIA: Intravenous sedation. PRE-OP DIAGNOSIS: Left ureteral calculus. POST-OP DIAGNOSIS: Left ureteral calculus. OPERATIVE PROCEDURE: Shock wave lithotripsy of left ureteral calculus. COMPLICATIONS: None. POSTOPERATIVE CONDITION: Stable. INDICATIONS: Carlos Stevenson is a 77-year-old gentleman, who had undergone left stent insertion and ureteroscopy for a calculus in the distal ureter. At that time, he was also noted to have a larger calculus in the proximal left ureter and is now being brought in for shock wave lithotripsy of the same. DESCRIPTION OF PROCEDURE: After induction of intravenous sedation, the patient was placed on the lithotripsy table in supine position. The calculus in the proximal ureter adjacent to the stent was localized using fluoroscopy. Shock wave lithotripsy was commenced at a rate of 90 shocks per minute. Periodic imaging revealed good localization and fragmentation and a total of 2400 shocks were administered. The patient tolerated the procedure satisfactorily and was transferred back to the recovery area in stable condition. [id number]/[facility] #: [id number] MTDD
== END 2018-01-05 13:24 | disposition home or self-care (01) ==
LOC: OR 09:33
PROVIDERS: ATTEND Urology
DX: N20.0 Calculus of kidney (principal)
CPT/HCPCS: 74018; J0696; J1100; J1940; J2250; J2405; J2704; J3010

== ENCOUNTER 2021-09-03 09:15 | Inpatient (IN) ==
[2021-09-03] MEDS ORDERED: Lactated Ringers 1000 ml BAG 1,000 ML IV ONE (09:29)
[2021-09-03 09:41] LABS: ABS Eosinophils 0.6 10^3/ul (0-0.6); ABS Lymphocytes 0.9 10^3/ul (1.0-4.8); ABS Monocytes 0.7 10^3/ul (0-0.8); ABS Neutrophils 6.3 10^3/ul (1.5-7.7); Hematocrit 52 % (42-52); Hemoglobin 17.5 g/dL (14.0-18.0); Lymphocyte % 10.8 %; Mean Corpuscular HGB Conc 34 g/dL (31-36); Mean Corpuscular Hemoglobin 31 pg (27-31); Mean Corpuscular Volume 93 fL (80-94); Mean Platelet Volume 8.5 fL (7.4-10.4); Nucleated Red Blood Cells % 0.1; Platelet Count 166 10^3/uL (150-450); Red Blood Count 5.62 10^6 /uL (4.18-5.48); Red Cell Distribution Width 14 % (10-15); White Blood Count 8.6 10^3/uL (3.5-10.8)
[2021-09-03 09:46] LABS: INR 1.29 (0.86-1.15)
[2021-09-03 09:59] LABS: ALT 54 U/L (7-52); AST 42 U/L (13-39); Albumin 4.3 g/dL (3.2-5.2); Albumin/Globulin Ratio 1.2 (1-3); Alkaline Phosphatase 334 U/L (35-149); Anion Gap 9 mmol/L (2-11); Blood Urea Nitrogen 24 mg/dL (6-24); CO2 Carbon Dioxide 28 mmol/L (22-32); Calcium 9.9 mg/dL (8.6-10.3); Chloride 101 mmol/L (101-111); Globulin 3.5 g/dL (2-4); Glucose 117 mg/dL (70-100); Potassium 4.3 mmol/L (3.5-5.0); Sodium 138 mmol/L (135-145); Total Protein 7.8 g/dL (6.4-8.9); eGFR CKD-EPI 43.5 (>60)
[2021-09-03 10:03] LABS: Troponin I 0.07 ng/mL (<0.03)
[2021-09-03 11:41] LABS: PSA Screening Total < 0.008 ng/mL (0-4.000)
[2021-09-03 11:43] LABS: Urine Appearance Clear; Urine Bilirubin Negative (Negative); Urine Blood Negative (Negative); Urine Color Yellow; Urine Glucose Negative (Negative); Urine Ketones Negative (Negative); Urine Nitrite Negative (Negative); Urine Protein Negative (Negative); Urine Specific Gravity 1.029 (1.002-1.030); Urine Urobilinogen Negative (Negative)
[2021-09-03] MEDS ORDERED: Iodixanol (CONTRAST) 320 MG/ML 100 ML SDV IV ONE (11:46)
[2021-09-03 13:36] LABS: Troponin I 0.06 ng/mL (<0.03)
[2021-09-03] MEDS ORDERED: NS 0.9% 1000 ml BAG 1,000 ML IV SCH (14:15)
[2021-09-03] MEDS ORDERED: Gadoteridol (CONTRAST) 279.3 MG/ML 10 ML IV ONE (14:38)
[2021-09-03 14:41] LABS: Rapid COVID-19 Molecular Undetected (Undetected)
[2021-09-03] MEDS ORDERED: Enoxaparin 40 MG/0.4 ML SYR SUBCUT SCH ×2 (15:00→15:30)
[2021-09-03] MEDS ORDERED: Enoxaparin 30 MG/0.3 ML SYR SUBCUT SCH (18:00)
[2021-09-03] MEDS: Dexamethasone IV 4 MG/ML VIAL 1 ml VIAL IV SLOW PU SCH (18:16)
[2021-09-03] MEDS: NS 0.9% 1000 ml BAG 1,000 ML IV SCH (20:46)
[2021-09-04] MEDS: Dexamethasone IV 4 MG/ML VIAL 1 ml VIAL IV SLOW PU SCH ×5 (00:31→23:33)
[2021-09-04] MEDS: NS 0.9% 1000 ml BAG 1,000 ML IV SCH (05:43)
[2021-09-04] MEDS ORDERED: Flu vaccine *QUAD* 2021-22* 0.5 ML SYRINGE IM ONE (09:00)
[2021-09-04] MEDS: Pantoprazole VIAL 40 MG VIAL IV SCH (09:04)
[2021-09-04] MEDS: Cholecalciferol (VIT D3) 1,000 unit TAB PO SCH (09:07)
[2021-09-04 09:42] LABS: Calcium 8.6 mg/dL (8.6-10.3); Potassium 4.6 mmol/L (3.5-5.0); eGFR CKD-EPI 51.2 (>60)
[2021-09-04] MEDS: Artificial Tear OPHTH.OINT 3.5 GM LEFT EYE PRN (15:04)
[2021-09-04] MEDS ORDERED: Enoxaparin 30 MG/0.3 ML SYR SUBCUT ONE (17:00)
[2021-09-05] MEDS: Dexamethasone IV 4 MG/ML VIAL 1 ml VIAL IV SLOW PU SCH ×4 (05:32→23:20)
[2021-09-05] MEDS: Pantoprazole VIAL 40 MG VIAL IV SCH (08:23)
[2021-09-05] MEDS: Artificial Tear OPHTH.OINT 3.5 GM LEFT EYE PRN ×2 (08:23→12:18)
[2021-09-05] MEDS: Cholecalciferol (VIT D3) 1,000 unit TAB PO SCH (12:16)
[2021-09-05] MEDS: Enoxaparin 30 MG/0.3 ML SYR SUBCUT SCH (12:16)
[2021-09-06] MEDS: Dexamethasone IV 4 MG/ML VIAL 1 ml VIAL IV SLOW PU SCH ×4 (05:41→23:15)
[2021-09-06] MEDS: Pantoprazole VIAL 40 MG VIAL IV SCH (08:08)
[2021-09-06] MEDS: Cholecalciferol (VIT D3) 1,000 unit TAB PO SCH (08:08)
[2021-09-06] MEDS: Enoxaparin 30 MG/0.3 ML SYR SUBCUT SCH (12:32)
[2021-09-07 05:52] LABS: ABS Lymphocytes 0.4 10^3/ul (1.0-4.8); ABS Monocytes 0.4 10^3/ul (0-0.8); ABS Neutrophils 6.4 10^3/ul (1.5-7.7); Eosinophil % 0.2 %; Hematocrit 42 % (42-52); Hemoglobin 14.1 g/dL (14.0-18.0); Lymphocyte % 5.1 %; Mean Corpuscular HGB Conc 34 g/dL (31-36); Mean Corpuscular Hemoglobin 31 pg (27-31); Mean Corpuscular Volume 92 fL (80-94); Mean Platelet Volume 9.1 fL (7.4-10.4); Platelet Count 120 10^3/uL (150-450); Red Blood Count 4.54 10^6 /uL (4.18-5.48); Red Cell Distribution Width 14 % (10-15); White Blood Count 7.1 10^3/uL (3.5-10.8)
[2021-09-07] MEDS: Dexamethasone IV 4 MG/ML VIAL 1 ml VIAL IV SLOW PU SCH ×3 (06:08→17:09)
[2021-09-07] MEDS: Artificial Tear OPHTH.OINT 3.5 GM LEFT EYE PRN (06:12)
[2021-09-07 06:29] LABS: Calcium 8.6 mg/dL (8.6-10.3); Potassium 4.5 mmol/L (3.5-5.0)
[2021-09-07] MEDS: Cholecalciferol (VIT D3) 1,000 unit TAB PO SCH (08:42)
[2021-09-07] MEDS: Pantoprazole VIAL 40 MG VIAL IV SCH (08:47)
[2021-09-07 09:30] LABS: INR 1.32 (0.86-1.15)
[2021-09-07] MEDS ORDERED: fentaNYL 100 mcg/2 ml 50 MCG/ML VIAL ONE (11:11)
[2021-09-08] MEDS: Dexamethasone IV 4 MG/ML VIAL 1 ml VIAL IV SLOW PU SCH ×3 (00:35→12:08)
[2021-09-08 06:09] LABS: ABS Eosinophils 0.1 10^3/ul (0-0.6); ABS Lymphocytes 0.4 10^3/ul (1.0-4.8); ABS Monocytes 0.4 10^3/ul (0-0.8); ABS Neutrophils 6.8 10^3/ul (1.5-7.7); Eosinophil % 1.3 %; Hematocrit 43 % (42-52); Hemoglobin 14.7 g/dL (14.0-18.0); Lymphocyte % 4.8 %; Mean Corpuscular HGB Conc 34 g/dL (31-36); Mean Corpuscular Hemoglobin 31 pg (27-31); Mean Corpuscular Volume 92 fL (80-94); Mean Platelet Volume 8.8 fL (7.4-10.4); Nucleated Red Blood Cells % 0.1; Platelet Count 114 10^3/uL (150-450); Red Cell Distribution Width 14 % (10-15); White Blood Count 7.7 10^3/uL (3.5-10.8)
[2021-09-08 06:28] LABS: Calcium 8.7 mg/dL (8.6-10.3); Potassium 4.6 mmol/L (3.5-5.0)
[2021-09-08] MEDS: Pantoprazole VIAL 40 MG VIAL IV SCH (08:34)
[2021-09-08] MEDS: Cholecalciferol (VIT D3) 1,000 unit TAB PO SCH (08:34)
[2021-09-08 10:26] VITALS: BP 145/79
== END 2021-09-08 15:55 | disposition home or self-care (01) | DRG 54 ==
LOC: ED 09:15 → EDHOLD 14:14 → MEDTELE 19:55
PROVIDERS: ADMIT Internal Medicine; ATTEND Internal Medicine